=== PATIENT | male | born 1965 | race Caucasian/White ===

== ENCOUNTER 2020-02-21 14:37 | Emergency (ER) | payer MEDICAID ==
[~2020-02-21] VITALS: Ht 172.7 cm; Wt 104.3 kg
[2020-02-21 14:43] VITALS: BP 134/89
[2020-02-21] MEDS ORDERED: NITROGLYCERIN 0.4 MG TAB SL ONE (15:35)
[2020-02-21] MEDS ORDERED: ASPIRIN 81 MG TAB.CHEW PO ONE (15:35)
[2020-02-21 16:24] LABS: BASOPHILS % (AUTO) 0.5 % (0.0-2.0); EOSINOPHILS # (AUTO) 0.5 K/uL (0-0.4); EOSINOPHILS % (AUTO) 7.8 % (0.0-4.0); HEMOGLOBIN 14.6 g/dL (12.0-18.0); LYMPHOCYTES # (AUTO) 1.7 K/uL (2.0-11.5); LYMPHOCYTES % (AUTO) 29.4 % (20.5-51.1); MEAN CORPUSCULAR HEMOGLOBIN 32 pg (27-31); MEAN CORPUSCULAR HGB CONC 34 g/dL (33-37); MEAN CORPUSCULAR VOLUME 95.1 fL (80-94); MONOCYTES # (AUTO) 0.6 K/uL (0.8-1.0); MONOCYTES % (AUTO) 9.7 % (1.7-9.3); NEUTROPHILS % (AUTO) 52.6 % (42.2-75.2); PLATELET COUNT (AUTO) 260 K/uL (140-450); RED BLOOD CELL COUNT(AUTO) 4.52 MIL/uL (4.20-6.10); RED CELL DISTRIBUTION WIDTH 12.5 % (11.6-13.7); WHITE BLOOD COUNT (AUTO) 5.8 K/uL (4.8-10.8)
[2020-02-21 16:38] LABS: ALBUMIN 3.7 g/dL (3.4-5.0); ANION GAP 13.4 (8-16); CARBON DIOXIDE 27.6 mmol/L (21-32); CREATININE 1.1 mg/dL (0.6-1.3); TOTAL BILIRUBIN 0.7 mg/dL (0.0-1.0)
[2020-02-21 17:43] VITALS: BP 116/70
== END 2020-02-21 17:43 | disposition home or self-care (01) ==
LOC: MED 14:37
DX: J44.9 Chronic obstructive pulmonary disease, unspecified (principal); R07.89 Other chest pain; I10 Essential (primary) hypertension
CPT/HCPCS: 36415; 71045; 80053; 84484; 85025; 85610; 85730; 93005; 99285; Q0092

== ENCOUNTER 2020-09-17 19:25 | Emergency (ER) | payer MEDICAID ==
[~2020-09-17] VITALS: Ht 172.7 cm; Wt 102.1 kg
[2020-09-17 19:38] VITALS: BP 140/83
--- NOTE | 2020-09-17 19:40 | NUR ---
1935--- To ED bed 12
--- NOTE | 2020-09-17 19:50 | NUR ---
55 YO M BIB SELF WITH C/C OF 7/10 SHARP ABD AND BACK PAIN SINCE MARCH. PT STATED PAIN COMES AND GOES AND WORSENS WHEN HE EATS. STATED HE WAS PRESCRIBED NAPROXEN AND HAS NO RELIEF. PT STATED HE HAS BEEN PASSING MORE GAS THAN USUAL. LAST BM WAS TODAY ALTHOUGH HE FEELS HIS BOWEL DOES NOT EMPTY. DENIES N/V/D. PT IS BEING TX WITH PCN FOR A THROAT INFECTION. HX: HTN, COPD RX: METHOCARBAMOL, PROMETHAZINE, PEPCID, ALBUTEROL, PCN, NAPROXEN, FLUTICASONE NKA
[2020-09-17 20:06] LABS: BASOPHILS # (AUTO) 0.1 K/uL (0.00-0.22); BASOPHILS % (AUTO) 0.6 % (0.0-2.0); EOSINOPHILS # (AUTO) 0.5 K/uL (0-0.4); EOSINOPHILS % (AUTO) 4.9 % (0.0-4.0); HEMOGLOBIN 15.3 g/dL (12.0-18.0); LYMPHOCYTES # (AUTO) 2.9 K/uL (2.0-11.5); LYMPHOCYTES % (AUTO) 31.6 % (20.5-51.1); MEAN CORPUSCULAR HEMOGLOBIN 32 pg (27-31); MEAN CORPUSCULAR HGB CONC 34 g/dL (33-37); MEAN CORPUSCULAR VOLUME 93.5 fL (80-94); MONOCYTES # (AUTO) 0.7 K/uL (0.8-1.0); MONOCYTES % (AUTO) 7.7 % (1.7-9.3); NEUTROPHILS # (AUTO) 5.1 K/uL (1.8-7.7); NEUTROPHILS % (AUTO) 55.2 % (42.2-75.2); PLATELET COUNT (AUTO) 291 K/uL (140-450); RED BLOOD CELL COUNT(AUTO) 4.82 MIL/uL (4.20-6.10); RED CELL DISTRIBUTION WIDTH 12.8 % (11.6-13.7); WHITE BLOOD COUNT (AUTO) 9.2 K/uL (4.8-10.8)
[2020-09-17 20:14] LABS: APPEARANCE,URINE CLEAR (CLEAR); BILIRUBIN,URINE NEGATIVE (NEGATIVE); BLOOD, URINE NEGATIVE (NEGATIVE); COLOR,URINE YELLOW (YELLOW); LEUKOCYTE ESTERASE ,URINE NEGATIVE (NEGATIVE); NITRITE, URINE NEGATIVE (NEGATIVE); UGLUCOSE NEGATIVE (NEGATIVE)
--- NOTE | 2020-09-17 20:15 | NUR ---
CT WITH CONTRAST CONSENT OBTAINED. IV ACCESS ESTABLISHED. PT PLACED IN GOWN. PENDING LABS.
[2020-09-17 20:38] LABS: ALBUMIN 4.1 g/dL (3.4-5.0); ANION GAP 16.5 (8-16); CARBON DIOXIDE 23.5 mmol/L (21-32); CREATININE 0.9 mg/dL (0.6-1.3); TOTAL BILIRUBIN 0.5 mg/dL (0.0-1.0)
--- NOTE | 2020-09-17 20:53 | NUR ---
PT TAKEN TO CT VIA W/C
--- NOTE | 2020-09-17 21:05 | NUR ---
PT BACK FROM CT VIA W/C.
--- NOTE | 2020-09-17 23:05 | NUR ---
PT IN STABLE CONDITION. PROVIDED WITH URINAL. ALL NEEDS MET AT THIS TIME.
[2020-09-18 00:15] VITALS: BP 128/70
--- NOTE | 2020-09-18 00:15 | NUR ---
Patient discharged with v/s stable. Written and verbal after care instructions given and explained. Patient alert, oriented and verbalized understanding of instructions. with steady gait. All questions addressed prior to discharge. ID band removed. Patient advised to follow up with PMD. Rx of PEPCID given. Patient educated on indication of medication including possible reaction and side effects. Opportunity to ask questions provided and answered.
== END 2020-09-18 00:15 | disposition home or self-care (01) ==
LOC: MED 19:25
DX: R10.13 Epigastric pain (principal); J44.9 Chronic obstructive pulmonary disease, unspecified
CPT/HCPCS: 36415; 74174; 80053; 81003; 83690; 85025; 99284; Q9967